=== PATIENT | female | born 1990 | race African-American/Black ===

== ENCOUNTER 2020-06-11 02:05 | Emergency (ER) | payer MEDICAID ==
[~2020-06-11] VITALS: Ht 167.6 cm; Wt 68.0 kg
[2020-06-11 03:34] LABS: BASOPHILS % 0.8 % (0.0-2.0); EOSINOPHILS % 1.1 % (0.0-5.0); HEMATOCRIT. 39.3 % (36.0-48.0); HEMOGLOBIN. 13.3 g/dL (12.0-16.0); LYMPHOCYTES % 22.1 % (20.0-50.0); MEAN CORPUSCULAR HEMOGLOBIN 32.8 pg (28.0-32.0); MEAN CORPUSCULAR VOLUME 96.7 fL (81.0-99.0); MEAN PLATELET VOLUME 8.9 fl (7.4-10.4); MONOCYTES % 6.3 % (2.0-8.0); NEUTROPHILS % 69.7 % (40.0-76.0); PLATELET 185 x1000/uL (130-400); RED BLOOD CELL COUNT 4.06 mill/uL (4.2-5.4); RED CELL DISTRIBUTION WIDTH 12.2 % (11.6-14.6)
[2020-06-11 03:45] LABS: CHLORIDE 105 mEq/L (98-107)
[2020-06-11] MEDS ORDERED: HYDROCODONE/ACETAMINOPHEN 5/325MG TABLET PO ONE (04:00)
[2020-06-11 05:06] VITALS: BP 115/74
== END 2020-06-11 05:57 | disposition home or self-care (01) ==
LOC: ER 02:05
DX: M79.672 Pain in left foot (principal); M79.671 Pain in right foot
CPT/HCPCS: 36415; 80048; 85025; 99283

== ENCOUNTER 2024-09-11 14:36 | Emergency (ER) | payer MEDICAID ==
[~2024-09-11] VITALS: Ht 167.6 cm; Wt 79.0 kg
[2024-09-11 14:45] VITALS: O2SAT 100
[2024-09-11] MEDS ORDERED: KETOROLAC 30MG/ML VIAL IV ONE (15:45)
[2024-09-11 15:59] LABS: BASOPHILS % 0.2 % (0.0-2.0); EOSINOPHILS % 0.2 % (0.0-5.0); HEMATOCRIT. 34.4 % (36.0-48.0); HEMOGLOBIN. 11.6 g/dL (12.0-16.0); LYMPHOCYTES % 11.8 % (20.0-50.0); MEAN CORPUSCULAR HEMOGLOBIN 32.5 pg (28.0-32.0); MEAN CORPUSCULAR HGB CONC 33.7 g/dL (31.0-37.0); MEAN CORPUSCULAR VOLUME 96.5 fL (81.0-99.0); MEAN PLATELET VOLUME 8.6 fl (7.4-10.4); MONOCYTES % 10.7 % (2.0-8.0); NEUTROPHILS % 77.1 % (40.0-76.0); PLATELET 267 x1000/uL (130-400); RED BLOOD CELL COUNT 3.56 mill/uL (4.2-5.4); RED CELL DISTRIBUTION WIDTH 12.6 % (11.6-14.6); WHITE BLOOD COUNT 14.9 x1000/uL (4.5-11.0)
[2024-09-11 16:08] LABS: CHLORIDE 106 mEq/L (98-107); POTASSIUM 3.3 mEq/L (3.5-5.1); SODIUM 139 mEq/L (136-145)
[2024-09-11 16:09] LABS: CARBON DIOXIDE 24 mEq/L (21-32)
[2024-09-11 16:10] LABS: CALCIUM 9.5 mg/dL (8.7-10.4)
[2024-09-11 16:14] LABS: CREATININE 0.7 mg/dL (0.6-1.0); GLUCOSE 93 mg/dL (70-105); UREA NITROGEN BLOOD 6 mg/dL (9-23)
[2024-09-11 16:38] LABS: B-HCG QUANTITATIVE < 1 mIU/mL (<3)
[2024-09-11] MEDS: KETOROLAC 30MG/ML VIAL IV NR (17:38)
[2024-09-11 18:26] VITALS: TEMP 38.22528
[2024-09-11] MEDS: MORPHINE SULFATE 4 MG/ML INJ (FOR IV/IM USE) IV ONE (21:26)
[2024-09-11 21:57] VITALS: TEMP 98.7
[2024-09-11] MEDS: ACETAMINOPHEN 325MG TABLET PO PRN (21:57)
[2024-09-11 22:17] LABS: CLARITY URINE CLEAR (CLEAR); COLOR URINE YELLOW (YELLOW); GLUCOSE URINE NEGATIVE (NEGATIVE); KETONES URINE 2+ (NEGATIVE); LEUKOCYTE ESTERASE URINE NEGATIVE (NEGATIVE); NITRITE URINE NEGATIVE (NEGATIVE); OCCULT BLOOD URINE 2+ (NEGATIVE); PH URINE 5.5 (4.5-8.0); PROTEIN URINE 1+ (NEGATIVE); SPECIFIC GRAVITY URINE >1.040 (1.005-1.030)
[2024-09-11] MEDS ORDERED: DOCU-138 MT (22:29)
[2024-09-11] MEDS ORDERED: TRAM50TA3 MT (22:29)
[2024-09-11] MEDS ORDERED: IBUP-2029 MT (22:29)
[2024-09-11 22:41] LABS: BACTERIA URINE NONE SEEN; RBC URINE NONE SEEN /hpf (0-2); SQUAMOUS EPITHELIAL CELL URINE RARE /lpf (RARE/1+); WBC URINE NONE SEEN /hpf (0-2)
[2024-09-11] MEDS ORDERED: IPRATROPIUM/ALBUTEROL 0.5-3(2.5)MG/3ML NEB HHN PRN (22:45)
[2024-09-11] MEDS ORDERED: ONDANSETRON HCL 4MG/2ML INJ IV PRN (22:45)
[2024-09-11] MEDS ORDERED: SODIUM CHLORIDE 0.9% 1,000 ML IV SCH (22:45)
[2024-09-11] MEDS ORDERED: HYDROCODONE/ACETAMINOPHEN 5/325MG TABLET PO PRN (22:45)
[2024-09-11] MEDS ORDERED: ACETAMINOPHEN 325MG TABLET PO PRN (22:45)
[2024-09-11] MEDS ORDERED: PIPERACILLIN/TAZOBACTAM 3.375 G in DEXTROSE 5% WATER 50 ML IV SCH (22:45)
[2024-09-11] MEDS ORDERED: MAGNESIUM/ALUMINUM HYDROXIDE/SIMETHICONE 30ML UDC PO PRN (22:45)
[2024-09-11] MEDS ORDERED: CLONIDINE 0.1MG TABLET PO PRN (22:45)
[2024-09-11] MEDS ORDERED: VANCOMYCIN 1.5GM/250ML IV NR (23:45)
[2024-09-11] MEDS ORDERED: PIPERACILLIN/TAZO 3.375G/50ML IV NR (23:45)
[2024-09-11] MEDS ORDERED: HYDR-4001 MT (23:48)
[2024-09-12] MEDS ORDERED: KCL 10MEQ/50ML PREMIX 50 ML IV SCH
[2024-09-12 00:05] VITALS: BP 124/69; PULSE 98; RESP 17; O2SAT 100
[2024-09-12] MEDS ORDERED: FAMOTIDINE 20MG TABLET PO SCH (21:00)
== END 2024-09-12 00:06 | disposition home or self-care (01) ==
LOC: ER 14:46
DX: N83.201 Unspecified ovarian cyst, right side (principal)
CPT/HCPCS: 80048; 81003; 84702; 85025; 36415; 74177; 76700; 76830; 76856; 96374; 96375; 99285; J3370; J1885; J2270; Z7610; J3480